=== PATIENT | female | born 2000 | race Two or more races ===

== ENCOUNTER 2019-03-06 01:38 | Emergency (ER) | payer OTHER ==
[~2019-03-06] VITALS: Ht 160 cm; Wt 75.0 kg
[2019-03-06 05:00] VITALS: BP 112/65
== END 2019-03-06 06:03 | disposition home or self-care (01) ==
LOC: EMS 01:40
DX: J30.81 Allergic rhinitis due to animal (cat) (dog) hair and dander (principal); H57.89 Other specified disorders of eye and adnexa

== ENCOUNTER 2024-03-07 02:06 | Emergency (ER) | payer SELFPAY ==
[~2024-03-07] VITALS: Ht 160 cm; Wt 79.5 kg
[2024-03-07 03:33] LABS: ANION GAP 10 mmol/L (8-16); CALCIUM, TOTAL 9.4 mg/dL (8.8-10.5); CARBON DIOXIDE 26 mmol/L (22-29); CHLORIDE 100 mmol/L (98-107); CREATININE 0.77 mg/dL (0.60-1.30); GLOMERULAR FILTR. RATE CALC > 60 mL/min (>60); GLUCOSE,RANDOM 111 mg/dL (70-110); POTASSIUM 3.7 mmol/L (3.5-5.1); SODIUM SERUM 136 mmol/L (136-145); UREA NITROGEN, BLOOD 10 mg/dL (7-18)
[2024-03-07 03:41] LABS: BASOPHILS % (AUTO) 0.5 % (0.0-2.0); EOSINOPHILS % (AUTO) 5.3 % (1.0-6.0); HEMATOCRIT 45.7 % (36-46); HEMOGLOBIN 15.4 g/dL (12.0-16.0); LYMPHOCYTES % (AUTO) 18.1 % (22.0-44.0); MEAN CORPUSCULAR HEMOGLOBIN 29.8 pg (26.0-34.0); MEAN CORPUSCULAR HGB CONC 33.8 G/dL (31.0-37.0); MEAN CORPUSCULAR VOLUME 88 fL (80-100); MONOCYTES % (AUTO) 6.2 % (2.0-9.0); NEUTROPHILS # (AUTO) 11.7 K/uL (1.8-7.7); NEUTROPHILS % (AUTO) 69.9 % (40.0-70.0); PLATELET COUNT (AUTO) 397 K/uL (150-450); RED BLOOD CELL COUNT(AUTO) 5.17 MIL/uL (4.00-5.20); RED CELL DISTRIBUTION WIDTH 13.1 % (11.5-14.5); WHITE BLOOD COUNT (AUTO) 16.8 K/uL (4.5-11.0)
[2024-03-07 03:42] LABS: TROPONIN I-HIGH SENSITIVITY 5 ng/L (<51)
[2024-03-07] MEDS: ALBUTEROL SULFATE 2.5 MG/0.5 ML NEB SOLUTION NEB ONE (04:17)
[2024-03-07] MEDS: IPRATROPIUM BROMIDE 0.5 MG/2.5 ML NEB SOLUTION NEB ONE (04:17)
[2024-03-07 04:24] VITALS: PULSE 71; PULSE 75; RESP 20; O2SAT 98
[2024-03-07 06:08] LABS: ALANINE AMINOTRANSFERASE 20 U/L (12-78); ALBUMIN 4.4 g/dL (3.4-5.0); ALKALINE PHOSPHATASE 111 U/L (46-116); ASPARTATE AMINOTRANSFERASE 18 U/L (15-37); BILIRUBIN,TOTAL 0.7 mg/dL (0.1-1.0); TOTAL PROTEIN, SERUM 9.2 g/dL (6.4-8.2)
[2024-03-07] MEDS ORDERED: ALBU18HF12 IH (06:33)
[2024-03-07 07:00] VITALS: BP 118/63; PULSE 68; RESP 20; TEMP 97.9; O2SAT 98
== END 2024-03-07 07:48 | disposition home or self-care (01) ==
LOC: EMS 02:06
DX: J06.9 Acute upper respiratory infection, unspecified (principal)
CPT/HCPCS: 71045; 76705; 80048; 80076; 84484; 85025; 93005; 94060; 94640; 99285; 36415-L1; 36415-TC; J7613